=== PATIENT | female | born 1970 | race Caucasian/White ===

== ENCOUNTER 2024-03-30 22:29 | Emergency (ER) | payer MEDICAID ==
[~2024-03-30] VITALS: Ht 154.9 cm; Wt 62.0 kg
[2024-03-30 22:39] VITALS: O2SAT 100
[2024-03-30 23:28] VITALS: BP 113/80; PULSE 87; RESP 16; TEMP 98.2; O2SAT 100
== END 2024-03-31 01:17 | disposition left against medical advice (07) ==
LOC: ER 22:29
DX: R07.9 Chest pain, unspecified (principal); Z53.21 Procedure and treatment not carried out due to patient leaving prior to being seen by health care provider

== ENCOUNTER 2024-04-08 10:09 | Emergency (ER) | payer MEDICAID ==
[~2024-04-08] VITALS: Ht 152.4 cm; Wt 62.1 kg
[2024-04-08 10:21] VITALS: O2SAT 99
[2024-04-08] MEDS ORDERED: LIDO700A15 TP (11:24)
[2024-04-08 11:30] VITALS: BP 118/76; PULSE 88; RESP 16; TEMP 36.83628; O2SAT 98
== END 2024-04-08 11:33 | disposition home or self-care (01) ==
LOC: ER 10:42
DX: S20.219A Contusion of unspecified front wall of thorax, initial encounter (principal); E11.9 Type 2 diabetes mellitus without complications; Z98.890 Other specified postprocedural states; X58.XXXA Exposure to other specified factors, initial encounter; Y93.89 Activity, other specified; Y92.89 Other specified places as the place of occurrence of the external cause; Y99.8 Other external cause status
CPT/HCPCS: 71045; 99283